=== PATIENT | female | born 1990 | race Caucasian/White ===

== ENCOUNTER 2018-08-02 21:39 | Outpatient (CLI) | payer MEDICAID ==
[~2018-08-02] VITALS: Ht 165.1 cm; Wt 106.9 kg
[2018-08-02] MEDS: LACTATED RINGER'S 1,000 ML IV SCH
[2018-08-02 22:04] VITALS: BP 129/61; PULSE 87; RESP 17; Ht 165.1 cm; Wt 106.9 kg
[2018-08-02] MEDS ORDERED: IRON1TAB78 PO (22:08)
[2018-08-02] MEDS ORDERED: ASPI-817 PO (22:08)
[2018-08-02] MEDS ORDERED: PREN1TAB13 PO (22:08)
[2018-08-02] MEDS ORDERED: TERBUTALINE 1 MG/ML INJ SC STA (22:38)
[2018-08-02] MEDS ORDERED: LACTATED RINGER'S 1,000 ML IV STA (22:38)
[2018-08-03] MEDS: LACTATED RINGER'S 1,000 ML IV SCH
--- NOTE | 2018-08-03 00:29 | PN ---
Triage Information Date/Time Aug 03, 2018 Reason for visit: labor Weeks of Gestation 31w 2d /Para 2/1 Diabetes: none Hypertention: none Additional information PMHx: none. PSHx: x 1 for PIH. NKDA. Objective Vital Signs Date Temp Pulse Resp B/P (MAP) Pulse Ox O2 O2 Flow FiO2 Time Delivery Rate 08/02/18 98.3 87 17 129/61 Room Air 22:04 (83) Heart Rate: 130's Heart Rate Comments With accels to 180 bpm. No decels. Contractions: < 5 Minutes Apart (initially) Exam closed/thick/high. Results/Medications Result Diagram: 08/02/18 2300 Results 24 hrs Laboratory Tests Test 08/02/18 21:48 08/02/18 23:00 Urine Color YELLOW Urine Clarity CLEAR Urine pH 5.0 Urine Specific [place] 1.024 Urine Ketones NEGATIVE Urine Nitrite NEGATIVE Urine Bilirubin NEGATIVE Urine Urobilinogen NEGATIVE Urine Leukocyte Esterase 1+ H Urine Microscopic RBC 1 Urine Microscopic WBC 4 Urine Squamous Epithelial Cells FEW Urine Bacteria FEW A Urine Mucus FEW A Urine Hemoglobin NEGATIVE Urine Glucose 1+ H Urine Total Protein NEGATIVE White Blood Count 9.1 Red Blood Count 3.93 L Hemoglobin 11.6 L Hematocrit 34.4 L Mean Corpuscular Volume 87.5 Mean Corpuscular Hemoglobin 29.5 Mean Corpuscular Hemoglobin Concent 33.7 Red Cell Distribution Width 12.4 Platelet Count 271 Mean Platelet Volume 10.1 Immature Granulocytes % 0.700 H Neutrophils % 66.8 Lymphocytes % 23.7 Monocytes % 7.8 Eosinophils % 0.7 Basophils % 0.3 Nucleated Red Blood Cells % 0.0 Immature Granulocytes # 0.060 H Neutrophils # 6.1 Lymphocytes # 2.2 Monocytes # 0.7 Eosinophils # 0.1 Basophils # 0.0 Nucleated Red Blood Cells # 0.0 Medications Current Medications Lactated Ringer's 1,000 ml @ 125 mls/hr Q8H IV ; Start 08/02/18 at 23:45 Imaging Results BPP 8/8 with an LUCY of 25.5 cm. VTX. Disposition: Discharge Assessment/Plan A: IUP at 31w 2d. False labor. P: Pt was given ample IV hydration and a dose of terbutaline. She may need a 2nd dose but the first one knocked out most of them. Will observe a while longer and d/c home. PTL precautions reviewed. CARLEY SUAREZ MD Aug 03, 2018 00:28
--- NOTE | 2018-08-03 01:39 | TRIAGE ---
OB Triage Datetime Report Generated by CPN: 08/03/2018 01:38 Datetime: 08/03/2018 01:06 Stage of : OB Triage Labor Evaluation Frequency: X2 Monitor Mode: External Duration (sec)2399: 40-80 Quality: Mild Pattern: Normal: <= 5 Contractions in 10 Minutes Resting Tone [place]: Relaxed Heart Rate FHR Baseline Rate: 135 Monitor Mode: External US Variability: Moderate 6-25 bpm Accelerations: 15X15 Decelerations: None Category: Category I Datetime: 08/03/2018 00:50 Stage of : OB Triage Pain Assessment Pain Scale: 0 Pain Presence: None/Denies Pain Type: N/A Pain Assessment Comments: PT REPORTED FEELING RELIEF FROM PAIN. Datetime: 08/03/2018 00:10 Labor Evaluation Frequency: X2 Monitor Mode: External Duration (sec)2399: 50-60 Quality: Mild Pattern: Normal: <= 5 Contractions in 10 Minutes Resting Tone [place]: Relaxed Heart Rate FHR Baseline Rate: 135 Monitor Mode: External US Variability: Moderate 6-25 bpm Accelerations: 15X15 Decelerations: Variable Category: Category II Comments: VARIABLE X1; DR. SUAREZ AWARE OF CAT 2 STRIP Datetime: 08/02/2018 23:05 Stage of : OB Triage Labor Evaluation Frequency: 1-3 Monitor Mode: External Duration (sec)2399: 40-80 Quality: Mild Pattern: Normal: <= 5 Contractions in 10 Minutes Resting Tone [place]: Relaxed Heart Rate FHR Baseline Rate: 145 Monitor Mode: External US Variability: Moderate 6-25 bpm Accelerations: 15X15 Decelerations: None Category: Category I Datetime: 08/02/2018 22:40 Vaginal Exam Dilatation (cms): 0.0 Effacement (%): 0 Station: -3 Exam By: Jose Alfredo CROCKETT Membrane Status: Intact Vaginal Bleeding: None Cervix, Consistency: Firm Cervix, Position: Posterior Datetime: 08/02/2018 22:30 Stage of : OB Triage Labor Evaluation Frequency: 2-3 Monitor Mode: External Duration (sec)2399: 30-60 Quality: Moderate Pattern: Normal: <= 5 Contractions in 10 Minutes Resting Tone [place]: Relaxed Heart Rate FHR Baseline Rate: 145 Monitor Mode: External US Accelerations: 15X15 Decelerations: None Category: Category I Datetime: 08/02/2018 22:16 Stage of : OB Triage Maternal Assessment Level of Consciousness: Fully Conscious DTR's/Clonus: DTRs 2+; No Clonus Headache: Denies Blurred Vision: No Respiratory Effort: Unlabored; Regular Rhythm; Equal Expansion Breath Sounds, Left: Clear and Equal Breath Sounds, Right: Clear and Equal Nausea/Vomiting: Denies RUQ Epigastric Pain: Denies Lower Extremities Edema: None Degree: None Upper Extremities Edema: None Degree: None Facial Edema: None Temperature Route: Oral Fall Risk Assessment History of Falling: (0) No Secondary Diagnosis: (0) No Ambulatory Aid: (0) Bedrest/Nurse Assist IV Therapy: (0) No Gait: (0) Normal/Bedrest/Immobile Mental Status: (0) Oriented to Own Ability Fall Score: 0 Fall Risk Score Definition: No Risk: No action required Pain Assessment Pain Scale: 4 Pain Presence: Constant Pain Type: Cramping; Dull; Contraction; Pressure Pain Location: Abdomen; Back; Perineum Pain Goal: 0 Pain Relief Measures: Comfort Measures Datetime: 08/02/2018 22:14 Time of Arrival: 08/02/2018 21:33 EGA: 31.1 Arrived By: Wheelchair Arrived From: Home Chief Complaint: CONTRACTIONS, VAGINAL PRESSURE, BACK PAIN, URINARY FREQUENCY Movement: Present Contractions: Regular Contractions: 2-4 Rupture of Membranes: Denies Vaginal Bleeding: None Vaginal Discharge: Denies Recent Sexual Intercouse: Denies Abdominal Trauma: Not Applicable Patient Complaints: Contractions; Back Pain; Urinary Frequency; Other Time Provider Notified: 08/02/2018 22:37 Provider Notified: DR. TORRE Initial Plan: EFM, CALL OB Datetime: 08/02/2018 21:46 Monitor Mode: External Contraction Comments: APPLIED Monitor Mode: External US Comments: APPLIED
== END 2018-08-03 01:15 | disposition home or self-care (01) ==
LOC: OBT 21:39 → L-D 21:40 → OBT 08-03 01:15
PROVIDERS: ATTEND Obstetrics & Gynecology
DX: O60.03 Preterm labor without delivery, third trimester (principal); Z3A.31 31 weeks gestation of pregnancy
CPT/HCPCS: 36415; 76817; 76818; 81001; 85025; 87086; 96360; 96361; 96372; J3105; J7120; Z7500; G0463

== ENCOUNTER 2018-08-23 23:13 | Outpatient (CLI) | payer MEDICAID ==
[~2018-08-23] VITALS: Ht 165.1 cm; Wt 106.4 kg
[~2018-08-23 23:13] MED LIST: ASPI-817 PO; IRON1TAB78 PO; PREN1TAB13 PO
[2018-08-24 00:42] VITALS: Ht 165.1 cm; Wt 106.4 kg
[2018-08-24] MEDS ORDERED: TERBUTALINE 1 MG/ML INJ SC ONE (04:00)
--- NOTE | 2018-08-24 06:20 | PN ---
Triage Information Date/Time Reason for visit: Abdominal pain and urinary frequency Weeks of Gestation 34 weeks and 2 days /Para 2 para 1001 Diabetes: none Hypertention: none Results/Medications Result Diagram: 08/24/18 0308 Results 24 hrs Laboratory Tests Test 08/24/18 02:00 08/24/18 03:08 Urine Color YELLOW Urine Clarity SLIGHTLY CLOUDY A Urine pH 5.0 Urine Specific [place] 1.019 Urine Ketones 2+ H Urine Nitrite NEGATIVE Urine Bilirubin NEGATIVE Urine Urobilinogen 1+ H Urine Leukocyte Esterase NEGATIVE Urine Microscopic RBC 2 Urine Microscopic WBC 5 Urine Squamous Epithelial Cells FEW Urine Bacteria FEW A Urine Mucus MODERATE Urine Hemoglobin NEGATIVE Urine Glucose NEGATIVE Urine Total Protein NEGATIVE White Blood Count 10.0 Red Blood Count 3.83 L Hemoglobin 11.0 L Hematocrit 33.2 L Mean Corpuscular Volume 86.7 Mean Corpuscular Hemoglobin 28.7 L Mean Corpuscular Hemoglobin Concent 33.1 Red Cell Distribution Width 12.6 Platelet Count 281 Mean Platelet Volume 10.3 Immature Granulocytes % 1.100 H Neutrophils % 67.8 Lymphocytes % 22.6 Monocytes % 7.7 Eosinophils % 0.6 Basophils % 0.2 Nucleated Red Blood Cells % 0.0 Immature Granulocytes # 0.110 H Neutrophils # 6.8 Lymphocytes # 2.3 Monocytes # 0.8 Eosinophils # 0.1 Basophils # 0.0 Nucleated Red Blood Cells # 0.0 Imaging Results There is a single live intrauterine gestation. Cardiac activity is present with 132 beats per minute. Cephalic presentation. Measurements were made in order to determine age. The results are as follows: BPD = 8.04 cm 32 weeks 2 days HC = 31.71 cm 35 weeks 5 days AC = 32.26 cm 36 weeks 1 day FL = 6.67 cm 34 weeks 2 days Estimated gestational age of approximately 34 weeks 4 days. The estimated date of delivery is 10/01/2018. The EFW = 2622 grams. No anatomic abnormalities demonstrated. The placenta is right posterior. There is no evidence for an abruption or placenta previa. IMPRESSION: Single live intrauterine gestation of approximately 34 weeks 4 days. Estimated date of delivery 10/01/2018. Disposition: Discharge Assessment/Plan 28 years old 2 para 1001 with single intrauterine at 34 weeks and 2 days with a LEIF of 10/03/2018 complaining of abdominal pain and urinary frequency. She states good movement. She denies nausea, vomiting, shortness of breath, chest pain, headache, visual changes, vaginal bleeding or LOF. -FHR: No sign of metabolic acidosis- Category I -CBC within normal limits, urinalysis within normal limits. Urine culture ordered -She irregular uterine contraction IV fluid and 1 dose of terbutaline given, no further uterine contractions noted -Ultrasound performed, amniotic fluid with 16.6, biophysical profile 8 out of 8 rest of ultrasound as noted above -Symptoms and sign of labor, preeclampsia, kick count discussed with patient, she voiced understanding. All of her questions answered. -Patient was discharged home in stable condition with the appropriate discharge instructions provided. I would like patient to have close follow-up with her primary physician or outpatient clinic in 1-2 days or return to triage for worsening symptoms or any other urgent concerns. SHAR OLIVARES Aug 24, 2018 06:20
--- NOTE | 2018-08-24 09:17 | TRIAGE ---
OB Triage Datetime Report Generated by CPN: 08/24/2018 09:17 Datetime: 08/24/2018 05:40 Stage of : OB Triage Labor Evaluation Frequency: X1/42 MIN Monitor Mode: External Duration (sec)2399: 60 Quality: Mild Pattern: Normal: <= 5 Contractions in 10 Minutes Resting Tone [place]: Relaxed Heart Rate FHR Baseline Rate: 125 Monitor Mode: External US Variability: Moderate 6-25 bpm Accelerations: 15X15 Decelerations: None Category: Category I Datetime: 08/24/2018 05:00 Stage of : OB Triage Labor Evaluation Frequency: 0 Monitor Mode: External Pattern: Normal: <= 5 Contractions in 10 Minutes Resting Tone [place]: Relaxed Heart Rate FHR Baseline Rate: 125 Monitor Mode: External US Variability: Moderate 6-25 bpm Accelerations: 15X15 Decelerations: None Category: Category I Datetime: 08/24/2018 04:00 Stage of : OB Triage Labor Evaluation Frequency: 4-9 Monitor Mode: External Duration (sec)2399: 50-80 Quality: Mild Pattern: Normal: <= 5 Contractions in 10 Minutes Resting Tone [place]: Relaxed Heart Rate FHR Baseline Rate: 130 Monitor Mode: External US Variability: Moderate 6-25 bpm Accelerations: 15X15 Decelerations: None Category: Category I Datetime: 08/24/2018 03:00 Stage of : OB Triage Labor Evaluation Frequency: X1/HR Monitor Mode: External Duration (sec)2399: 70 Quality: Mild Pattern: Normal: <= 5 Contractions in 10 Minutes Resting Tone [place]: Relaxed Heart Rate FHR Baseline Rate: 130 Monitor Mode: External US Variability: Moderate 6-25 bpm Accelerations: 15X15 Decelerations: Variable Category: Category II Pain Assessment Pain Scale: 4 Pain Presence: Intermittent Pain Type: Cramping Pain Location: Abdomen Pain Goal: 3 Pain Relief Measures: Comfort Measures Datetime: 08/24/2018 02:59 Vaginal Exam Dilatation (cms): 1.0 Effacement (%): 50 Station: -2 Exam By: MIGEL Vaginal Bleeding: None Cervix, Consistency: Moderate Cervix, Position: Posterior Datetime: 08/24/2018 02:34 Time of Arrival: 08/23/2018 23:10 EGA: 34.1 Arrived By: Wheelchair Arrived From: Home Chief Complaint: LOWER ABD PAIN Movement: Present Contractions: Irregular Rupture of Membranes: Denies Vaginal Discharge: Denies Recent Sexual Intercouse: Denies Time Provider Notified: 08/24/2018 00:50 Provider Notified: HADADIAN Initial Plan: CBC, UU, SVE, EFW AND BPP Datetime: 08/24/2018 01:41 Labor Evaluation Frequency: 0 Monitor Mode: External Heart Rate FHR Baseline Rate: 130 Monitor Mode: External US Comments: loss contact, audible at 130s Datetime: 08/24/2018 01:00 Labor Evaluation Frequency: 0 Monitor Mode: External Resting Tone [place]: Relaxed Heart Rate FHR Baseline Rate: 130 Monitor Mode: External US Variability: Moderate 6-25 bpm Accelerations: 15X15 Decelerations: None Category: Category I Datetime: 08/24/2018 00:50 Assessment Type: Triage Maternal Assessment Level of Consciousness: Fully Conscious DTR's/Clonus: DTRs 2+; No Clonus Headache: Denies Blurred Vision: No Respiratory Effort: Unlabored; Regular Rhythm; Equal Expansion Breath Sounds, Left: Clear and Equal Breath Sounds, Right: Clear and Equal Nausea/Vomiting: Denies RUQ Epigastric Pain: Denies Facial Edema: None Fall Risk Assessment History of Falling: (0) No Secondary Diagnosis: (0) No Ambulatory Aid: (0) Bedrest/Nurse Assist IV Therapy: (0) No Gait: (0) Normal/Bedrest/Immobile Mental Status: (0) Oriented to Own Ability Fall Score: 0 Fall Risk Score Definition: No Risk: No action required Datetime: 08/24/2018 00:35 Monitor Mode: External Monitor Mode: External US Comments: applied Datetime: 08/03/2018 01:15 Time of Arrival: 08/24/2018 00:50 EGA: 34.2 Arrived By: Wheelchair Arrived From: Home Chief Complaint: Lower Abdominal Pain Movement: Present Contractions: Irregular Rupture of Membranes: Denies Vaginal Bleeding: None Vaginal Discharge: Denies Recent Sexual Intercouse: Denies Abdominal Trauma: Not Applicable Patient Complaints: Other Time Provider Notified: 08/24/2018 00:50 Provider Notified: Hadadian Initial Plan: EFW, BPP, UA, CBC, SVE Datetime: 08/02/2018 22:16 Fall Score: 0 Fall Risk Score Definition: No Risk: No action required Datetime: 08/02/2018 22:14 EGA: 31.1
== END 2018-08-24 06:12 | disposition home or self-care (01) ==
LOC: L-D 23:13 → OBT 23:13 → L-D 08-24 00:35 → OBT 08-24 06:12
PROVIDERS: ATTEND Obstetrics & Gynecology
DX: O26.893 Other specified pregnancy related conditions, third trimester (principal); Z3A.34 34 weeks gestation of pregnancy; R10.9 Unspecified abdominal pain; R35.0 Frequency of micturition
CPT/HCPCS: 76815; 76818; 81001; 85025; 87086; 96372; J3105; Z7500; 81003; G0463

== ENCOUNTER 2018-09-18 08:56 | Inpatient (IN) | payer MEDICAID ==
[~2018-09-18] VITALS: Ht 165.1 cm; Wt 110.0 kg
[~2018-09-18 08:56] MED LIST changes: +EPHEDrine SULFATE 50 MG/5 ML SYG ONE; +OXYTOCIN 30 UNITS/LR 500 ML BAG IV ONE
[2018-09-18 09:16] VITALS: BP 113/72; PULSE 92; RESP 18; Ht 165.1 cm; Wt 110.0 kg
[2018-09-18] MEDS ORDERED: LACTATED RINGER'S 1,000 ML IV SCH ×2 (10:00→19:31)
[2018-09-18] MEDS ORDERED: CEFTRIAXONE 1 GM/50 ML (PMX) 50 ML IVPB ONE (10:30)
--- NOTE | 2018-09-18 11:37 | TRIAGE ---
OB Triage Datetime Report Generated by CPN: 09/18/2018 11:37 Datetime: 09/18/2018 11:07 Maternal Assessment Level of Consciousness: Fully Conscious DTR's/Clonus: DTRs 2+ Headache: Denies Blurred Vision: No Nausea/Vomiting: Denies RUQ Epigastric Pain: Denies Facial Edema: None Labor Evaluation Frequency: 3 Monitor Mode: External Duration (sec)2399: 60 Quality: Moderate Pattern: Normal: <= 5 Contractions in 10 Minutes Resting Tone [place]: Relaxed Heart Rate FHR Baseline Rate: 130 Monitor Mode: External US FHR Baseline Changes: No Baseline Change Variability: Moderate 6-25 bpm Accelerations: 15X15 Decelerations: None Category: Category I Pain Assessment Pain Scale: 4 Pain Presence: Intermittent Pain Type: Contraction Pain Location: Abdomen Pain Goal: 2 Membrane Status: Intact Datetime: 09/18/2018 11:04 EGA: 38.4 Datetime: 09/18/2018 09:21 Maternal Assessment Level of Consciousness: Fully Conscious DTR's/Clonus: DTRs 2+; No Clonus Headache: Denies Blurred Vision: No Respiratory Effort: Unlabored; Regular Rhythm; Equal Expansion Breath Sounds, Left: Clear and Equal Breath Sounds, Right: Clear and Equal Nausea/Vomiting: Denies RUQ Epigastric Pain: Denies Facial Edema: None Temperature Route: Axillary Fall Risk Assessment History of Falling: (0) No Secondary Diagnosis: (0) No Ambulatory Aid: (0) Bedrest/Nurse Assist IV Therapy: (0) No Gait: (0) Normal/Bedrest/Immobile Mental Status: (0) Oriented to Own Ability Fall Score: 0 Fall Risk Score Definition: No Risk: No action required Datetime: 09/18/2018 09:05 Maternal Assessment Level of Consciousness: Fully Conscious DTR's/Clonus: DTRs 2+ Headache: Denies Blurred Vision: No Nausea/Vomiting: Denies RUQ Epigastric Pain: Denies Facial Edema: None Labor Evaluation Frequency: Q 20 AT HOME Monitor Mode: External Quality: Moderate Pattern: Normal: <= 5 Contractions in 10 Minutes Resting Tone [place]: Relaxed Heart Rate FHR Baseline Rate: 145 Monitor Mode: External US FHR Baseline Changes: No Baseline Change Variability: Moderate 6-25 bpm Accelerations: 15X15 Decelerations: None Category: Category I Pain Assessment Pain Scale: 4 Pain Presence: Intermittent Pain Type: Cramping Pain Location: Abdomen Vaginal Exam Dilatation (cms): 1.0 Station: -3 Exam By: EDVIN KRISHNAMURTHY Membrane Status: Intact Vaginal Bleeding: None Cervix, Consistency: Moderate Cervix, Position: Posterior Datetime: 09/18/2018 09:02 Time of Arrival: 09/18/2018 08:55 EGA: 37.6 Arrived By: Ambulatory Arrived From: Home Chief Complaint: UCS SINCE 0400 Movement: Present Time Contractions Began: 09/18/2018 04:00 Rupture of Membranes: Denies Vaginal Bleeding: None Vaginal Discharge: Denies Recent Sexual Intercouse: Denies Abdominal Trauma: Not Applicable Patient Complaints: Contractions Time Provider Notified: 09/18/2018 09:50 (Annotations: Data stored by CPN on behalf of user) Provider Notified: DR TORRE Initial Plan: EFM,CALL DR TORRE Datetime: 08/24/2018 02:34 EGA: 34.1 Datetime: 08/24/2018 00:50 Fall Score: 0 Fall Risk Score Definition: No Risk: No action required Datetime: 08/03/2018 01:15 EGA: 34.2 Datetime: 08/02/2018 22:16 Fall Score: 0 Fall Risk Score Definition: No Risk: No action required Datetime: 08/02/2018 22:14 EGA: 31.1
[2018-09-18] MEDS ORDERED: OXYTOCIN 30 UNITS/LR 500 ML IV PRN ×2 (12:00→20:00)
[2018-09-18] MEDS ORDERED: METHYLERGONOVINE 0.2 MG INJ IM PRN ×2 (12:00→20:00)
[2018-09-18] MEDS ORDERED: CARBOPROST 250 MCG INJ IM PRN ×2 (12:00→20:00)
[2018-09-18] MEDS ORDERED: CEFAZOLIN 2 GM/50 ML (PMX) 50 ML IVPB SCH (12:00)
[2018-09-18] MEDS ORDERED: MISOPROSTOL 200 MCG TAB PR PRN ×2 (12:00→20:00)
--- NOTE | 2018-09-18 13:01 | PREAC ---
Date/Time of Note Date/Time of Note DATE: 09/18/18 TIME: 12:59 Anesthesia Eval and Record Evaluation Time Pre-Procedure Interview DATE: 09/18/18 TIME: 12:59 Age 28 Sex female NPO: 8 hrs Preoperative diagnosis Repeat in labor and BTL Planned procedure and BTL Past Medical History Past Medical History: Includes Cardio: HTN Heme: Anemia : : (2), Para: (1), Gestational age: (38) Surgery & Anesthesia Issues No known issue Meds Anticoagulation: No Beta Samuel within 24 hr: No Reason Beta Samuel not given: Pt. not on B-Samuel Reported Medications Iron,Carbonyl/Vit C/Vit B12/Fa (IRON 100 PLUS TABLET) 1 Each Tablet, 1 EACH PO, TAB 08/02/18 Aspirin* (Aspirin* EC) 81 Mg Tablet.dr, 81 MG PO DAILY, TAB 08/02/18 Pnv95/Ferrous Fumarate/FA ( Vitamins Tablet) 1 Each Tablet, 1 EACH PO, TAB 08/02/18 Current Medications Lactated Ringer's 1,000 ml @ 120 mls/hr Q8H20M IV Last administered on 09/18/18at 09:59; Admin Dose 120 MLS/HR; Start 09/18/18 at 10:00 Cefazolin Sodium/ Dextrose 50 ml @ 100 mls/hr ONCE IVPB ; Start 09/18/18 at 12:00 Oxytocin/Lactated Ringer's 500 ml @ 0 mls/hr ONCE PRN IV .VAGINAL BLEEDING; Start 09/18/18 at 12:00 Methylergonovine Maleate (Methergine) 0.2 mg ONCE PRN IM .VAGINAL BLEEDING; Start 09/18/18 at 12:00 Carboprost Tromethamine (Hemabate) 250 mcg ONCE PRN IM .VAGINAL BLEEDING; Start 09/18/18 at 12:00 Misoprostol (Cytotec) 1,000 mcg ONCE PRN MS .VAGINAL BLEEDING; Start 09/18/18 at 12:00 Meds reviewed: Yes Allergies Coded Allergies: No Known Allergy (Unverified , 08/02/18) Allergies Reviewed: Yes Labs/Studies Labs Reviewed: Reviewed by anesthesiologist Result Diagram: 09/18/18 1210 Laboratory Tests 09/18/18 12:10 test: Positive Studies: ECG (n/a), CXR (n/a) Pre-procedure Exam Last vitals Vital Signs Date Temp Pulse Resp B/P (MAP) Pulse Ox O2 O2 Flow FiO2 Time Delivery Rate 09/18/18 98.3 92 18 113/72 Room Air 09:16 (86) Airway: Adequate mouth opening, Adequate thyromental dist Mallampati: Mallampati II Teeth: Normal Lung: Normal Heart: Normal ASA Physical Status ASA physical status: 2 Emergency: E Planned Anesthetic Neuraxial: Spinal Planned Pain Management Sub-arachniod narcotics, Parenteral pain med Pre-operative Attestations Prior to commencing anesthesia and surgery, the patient was re-evaluated, there was verification of: *The patient's identity *The results of appropriate recent lab work and preoperative vital signs *The above evaluation not changing prior to induction *Anesthetic plan, risk benefits, alternative and complications discussed with patient/family; questions answered; patient/family understands, accepts and wishes to proceed. POLO STARR MD Sep 18, 2018 13:01
[2018-09-18] MEDS ORDERED: ONDANSETRON 4 MG INJ IV ONE (13:30)
[2018-09-18] MEDS ORDERED: CITRIC ACID/NA CITRATE 30 ML CUP PO ONE (13:30)
--- NOTE | 2018-09-18 14:03 | HP ---
Date/Time of Note Date/Time of Note DATE: 09/18/18 TIME: 13:56 OB - History Hx of Present Free Text/Dictation 28-year-old female 2 para 1 at 37 weeks and 6 days gestation admitted complaining of onset of a uterine contractions in early a.m. Denies rupture of membrane no vaginal bleed Last Menstrual Period: Dec 27, 2017 Estimated Due Date: Oct 03, 2018 : 2 Para: 1 Care: Good Care Ultrasounds: Normal mid trimester US Obstetrical Complications: None Medical Complications: None Past Family/Social History * Past Medical, Surgical, Family and Obstetric Histories reviewed from chart. Blood Type: O+ Rubella: immune RPR/VDRL: Negative GBS Status: Negative HBsAG: Negative OB Admission Exam Vital Signs Vital Signs Vital Signs Date Temp Pulse Resp B/P (MAP) Pulse Ox O2 O2 Flow FiO2 Time Delivery Rate 09/18/18 98.3 92 18 113/72 Room Air 09:16 (86) Physical Exam HEENT: WNL Heart: Rhythm Normal Lungs: Clear, Equal Abdomen: WNL Extremities: Normal Reflexes: Normal Cervical Dilatation: 2cm Effacement: 50% Station: -3 Membranes: Intact Heart Rate: 140's Accelerations: Accelerations Present Decelerations: No Decelerations Varibility: Marked Contractions on Admission: < 5 Minutes Apart Date/Time Contractions Began: 414 056 AM Frequency of Contractions: Every 2-3-minute Intensity: Moderate Last 72 hours Lab Results CBC & BMP 09/18/18 12:10 OB Assessment/Plan Reason for admission: section Other Assessment: Term gestation Previous section Patient has a strong desire to have permanent sterilization Other plan: Repeat and tubal ligation AWA DERAS MD Sep 18, 2018 14:03
[2018-09-18] MEDS ORDERED: OXYTOCIN 10 UNIT INJ ONE (14:12)
[2018-09-18] MEDS ORDERED: morphine SULFATE/PF (10 MG/10 ML) INJ ONE (14:12)
[2018-09-18] MEDS ORDERED: DEXAMETHASONE 4 MG/ML 1 ML INJ ONE (14:38)
[2018-09-18] MEDS ORDERED: KETOROLAC 30 MG INJ ONE (14:38)
[2018-09-18] MEDS ORDERED: METOCLOPRAMIDE 10 MG INJ ONE (14:38)
[2018-09-18] MEDS ORDERED: NALOXONE (0.4 MG/ML) INJ IV PRN (15:00)
[2018-09-18] MEDS ORDERED: morphine 2 MG INJ IV PRN ×2 (15:00)
[2018-09-18] MEDS ORDERED: KETOROLAC 30 MG INJ IV PRN (15:00)
[2018-09-18] MEDS ORDERED: ONDANSETRON 4 MG INJ IV PRN (15:00)
[2018-09-18] MEDS ORDERED: HYDROCODONE/APAP (5/325) TAB PO PRN ×2 (15:00→20:00)
[2018-09-18] MEDS ORDERED: DIPHENHYDRAMINE 50 MG INJ IV PRN (15:00)
[2018-09-18] MEDS ORDERED: NALBUPHINE HCL (10 MG/1 ML) INJ IV PRN (15:00)
[2018-09-18] MEDS ORDERED: HYDROmorphONE 0.5 MG/0.5 ML SYG IV PRN ×2 (15:00)
[2018-09-18] MEDS ORDERED: ACETAMINOPHEN 500 MG TAB PO PRN (15:00)
[2018-09-18] MEDS ORDERED: KETOROLAC 30 MG INJ IV STA (15:18)
--- NOTE | 2018-09-18 15:18 | OPR ---
Operative Report Planned Procedure Free Text/Dictation 28-year-old female 2 para 1 at 37 weeks and 6 days for repeat section and tubal ligation labor Procedure date Sep 18, 2018 Procedure(s) Repeat section and bilateral tubal ligation Performed by see signature line Senior Technical Specialist: TRISTAN NARAYAN M.D. Anesthesiologist: POLO STARR MD Pre-procedure diagnosis 37 weeks and 6 days gestation Previous section x1 Desired sterilization [id number] Anesthesia Type: [id number] spinal Post-Procedure Post-procedure diagnosis Status post repeat and tubal ligation Findings Live Baby in OT position Clear amniotic fluid Normal-appearing right and left fallopian tubes and ovaries Estimated Blood Loss: 500 - 600 mls Specimen(s) Segments of right and left fallopian tubes Grafts/Implant(s) none Complication(s) none Pt Condition post procedure: stable Disposition: PACU Procedure Description Under satisfactory anaesthesia a Pfannenstiel incision was made two fingerbreadth above and parallel to the symphysis of pubis around the previous scar and previous scar was removed Incision was extended laterally to the border of the Recti muscles on either sides. Incision was carried down with sharp and blunt dissection until fascia was reached. Anterior Recti muscle fascia was incised in mid portion and incision extended laterally to the border of skin incision. Fascia was mobilized from muscle superiorly and Recti muscles were from midline using sharp and blunt dissection. Peritoneum was visualized; Avoiding bowel and bladder it was incised . Incision was extended superiorly and inferiorly. Bladder blade was placed. Posterior peritoneum covering the lower segment of the uterus and lower segment of the uterus were incised.Low transverse uterine incision was made on lower segment of the uterus. Incision extended laterally to the border of Round Lig. on either sides and baby was delivered from OT. position . Amniotic fluid appeared clear. Cord blood was obtained and cord had 3 vessels . Placenta was delivered spontaneously and appeared intact and complete. Intrauterine cavity was rubbed with a laparotomy sponge. Uterine incision was closed in 2 layers using running stitches of No1 Monocryl. Hemostasis appeared secure. Ovaries and Fallopian tubes were within normal limits. Bilateral Tubal Ligation was performed by following procedure: R fallopian tube was raised in mid portion; a Korin clamp was placed below the fimbriae extending to proximal portion of the fallopian tube. Another clamp was placed parallel to the first and after incising the fallopian tube the stump was sutured using 0 Vicryl stitch. Hemostasis was secure . Same procedure was done on fallopian tube on the opposite side. Hemostasis appeared to be secure on ligated sites of either fallopian tubes. Announcing needle, lap sponge and instrument count to be correct abdomen was closed in layers as follows: Peritoneum and Recti muscles with running stitches of 2-0 Vicryl. Fascia with running stitch of No 1 PDS. Subcutaneous tissue with running stitches of 2-0 Vicryl and skin was closed using luis enrique. Patient tolerated the procedure well and was transferred to [facility] in good condition. AWA DERAS MD Sep 18, 2018 15:18
--- NOTE | 2018-09-18 15:27 | PAC ---
Date/Time of Note Date/Time of Note DATE: 09/18/18 TIME: 15:27 Post-Anesthesia Notes Post-Anesthesia Note Last documented vital signs Vital Signs Date Temp Pulse Resp B/P (MAP) Pulse Ox O2 O2 Flow FiO2 Time Delivery Rate 09/18/18 98.5 92 18 113/72 Room Air 15:26 (86) Activity: WNL Respiratory function: WNL Cardiovascular function: WNL Mental status: Baseline Pain reasonably controlled: Yes Hydration appropriate: Yes Nausea/Vomiting absent: Yes POLO STARR MD Sep 18, 2018 15:27
[2018-09-18] MEDS ORDERED: AZITHROMYCIN 500MG/NS (PMX) 250 ML IVPB ONE (15:30)
[2018-09-18 18:15] VITALS: BP 116/67; PULSE 74; RESP 18
[2018-09-18 19:30] VITALS: BP 121/71; PULSE 74; RESP 18
[2018-09-18] MEDS ORDERED: OXYCODONE/ACETAMINOPHEN (5/325) TAB PO PRN (20:00)
[2018-09-18] MEDS ORDERED: LANOLIN HPA 1 PKT TOP PRN (20:00)
[2018-09-18] MEDS ORDERED: NA PHOSPHATE/BIPHOS 133 ML ENEMA PR PRN (20:00)
[2018-09-18] MEDS: SENNA/DOCUSATE NA (8.6MG/50MG) TAB PO SCH (21:39)
[2018-09-18] MEDS: CEFAZOLIN 2 GM/50 ML (PMX) 50 ML IVPB SCH (21:40)
[2018-09-18] MEDS: CLINDAMYCIN 300 MG CAP PO SCH (23:55)
[2018-09-19] VITALS: BP 119/69; PULSE 71; RESP 19
[2018-09-19 04:00] VITALS: BP 108/65; PULSE 97; RESP 18
[2018-09-19] MEDS: CEFAZOLIN 2 GM/50 ML (PMX) 50 ML IVPB SCH ×2 (05:50→13:23)
[2018-09-19] MEDS: CLINDAMYCIN 300 MG CAP PO SCH ×3 (05:50→17:56)
[2018-09-19] MEDS: LACTATED RINGER'S 1,000 ML IV SCH ×2 (05:50→13:30)
[2018-09-19 08:20] VITALS: BP 108/61; PULSE 95; RESP 17
[2018-09-19] MEDS ORDERED: BISACODYL 10 MG SUPP PR ONE (10:30)
[2018-09-19] MEDS: SENNA/DOCUSATE NA (8.6MG/50MG) TAB PO SCH ×2 (10:46→21:36)
[2018-09-19 15:30] VITALS: BP 116/58; PULSE 90; RESP 18
--- NOTE | 2018-09-19 17:07 | PN ---
Date/Time of Note Date/Time of Note DATE: 09/19/18 TIME: 17:07 Assessment/Plan VTE Prophylaxis VTE Prophylaxis Intervention: ambulation Lines/Catheters IV Catheter Type (from Nrsg): Peripheral IV Assessment/Plan Assessment/Plan Postop day #1 status post Continue to ambulate patient on advance diet Subjective 24 Hr Interval Summary Passing flatus but no bowel movement Constitutional: no complaints, improved, ambulates, BM, flatus, urine output Pain Control: well controlled Exam/Review of Systems Vital Signs Vitals Vital Signs Date Temp Pulse Resp B/P (MAP) Pulse Ox O2 O2 Flow FiO2 Time Delivery Rate 09/19/18 99.0 90 18 116/58 15:30 (77) 09/19/18 95 Room Air 08:20 Intake and Output 09/18/18 09/18/18 09/19/18 1515:00 23:00 07:00 IntakeIntake Total 1000 ml 800 ml 1390 ml OutputOutput Total 400 ml 997 ml 500 ml BalanceBalance 600 ml -197 ml 890 ml Exam Free Text/Dictation Abdomen is soft slightly tender around incision and abdomen does not seem distended with present bowel sounds Incision is covered Constitutional: alert, oriented, well developed Psych: no complaints, nl mood/affect Head: normocephalic, atraumatic Eyes: nl conjunctiva, EOMI, nl lids, nl sclera ENMT: nl external ears & nose, nl lips & teeth, nl nasal mucosa & septum, mucosa pink and moist Neck: supple, non-tender Respiratory: clear to auscultation, normal air movement Cardiovascular: regular rate and rhythm, nl pulses Gastrointestinal: soft, nl liver, spleen, non-tender Musculoskeletal: nl extremities to inspection, nl gait and stance Extremities: normal pulses Neurological: METAL DIE FINISHER II-XII intact, nl mental status, nl speech, nl strength Skin: nl turgor, rash or lesions Lymph: nl lymph nodes Results Result Diagram: 09/19/18 [id number] AWA DERAS MD Sep 19, 2018 17:07
[2018-09-19 20:00] VITALS: BP 127/69; PULSE 95; RESP 18
[2018-09-19] MEDS: IBUPROFEN 800 MG TAB PO SCH (21:36)
[2018-09-20] MEDS: CLINDAMYCIN 300 MG CAP PO SCH ×5 (00:10→23:21)
[2018-09-20 03:38] VITALS: BP 115/56; PULSE 89; RESP 17
[2018-09-20] MEDS: IBUPROFEN 800 MG TAB PO SCH ×3 (05:42→21:31)
[2018-09-20 08:00] VITALS: BP 115/74; PULSE 69; RESP 18
[2018-09-20] MEDS: SENNA/DOCUSATE NA (8.6MG/50MG) TAB PO SCH ×2 (09:00→21:31)
[2018-09-20 16:00] VITALS: BP 130/76; PULSE 95; RESP 18
--- NOTE | 2018-09-20 17:25 | DS ---
Date/Time of Note Date/Time of Note DATE: 09/20/18 TIME: 17:23 Discharge Summary Admission/Discharge Info Admit Date/Time Sep 18, 2018 at 11:35 Discharge Date/Time September 20 repeat 2018 Discharge Diagnosis Status post repeat and bilateral tubal ligation Patient Condition: Serious Procedures Repeat and bilateral tubal ligation Hx of Present Illness 28-year-old female underwent repeat and bilateral tubal ligation Hospital Course Patient had uncomplicated hospital course. She tolerated diet well was ambulating without complications. Discharge home on the second or third hospitalization day with good prognosis and condition. Home Meds Reported Medications Iron,Carbonyl/Vit C/Vit B12/Fa (IRON 100 PLUS TABLET) 1 Each Tablet, 1 EACH PO, TAB 08/02/18 Aspirin* (Aspirin* EC) 81 Mg Tablet.dr, 81 MG PO DAILY, TAB 08/02/18 Pnv95/Ferrous Fumarate/FA ( Vitamins Tablet) 1 Each Tablet, 1 EACH PO, TAB 08/02/18 Follow-up Plan 4 days in clinic for staple removal Primary Care Provider Care Physician No Primary Time spent on discharge: > 30 minutes Pending Labs Laboratory Tests Test 09/20/18 06:34 Lab Scanned Report REFERENCE LAB [id number] AWA DERAS MD Sep 20, 2018 17:25
--- NOTE | 2018-09-20 17:27 | DS ---
Date/Time of Note Date/Time of Note Home today or next day DATE: 09/20/18 TIME: 17:26 Obstetrical Discharge Record Final Diagnosis Final Diagnosis: Term delivered Other Final Diagnosis Status post repeat Vaginal Delivery Obstetrical Delivery: Bilateral Tubal Ligation Section Section: Repeat Condition on Discharge Physical Assessment Last Vitals: See nurse's notes Voiding: Yes Bowel Movement: Yes Breast: Soft, non-tender, Filling Fundus: Firm Abdomen and Incision: Abdomen is soft with present bowel sounds Calf Tenderness: No Patient Condition: Good AWA DERAS MD Sep 20, 2018 17:27
--- NOTE | 2018-09-20 17:28 | PD.PPDC ---
SOLAR MAINTENANCE TECHNICIAN Discharge Instruction Provider Information Physician Information 28-year-old female had repeat and tubal ligation Diagnosis [id number] Final Diagnosis: Szbhl9y Status post repeat tubal ligation Condition Ohypa1Xc Patient Condition: Pykzv0m Good Diet Nbkni2Jw Diet: Soeqh5c Resume Regular Diet Activity/Restrictions Gmckr3Lk Activity: Udpgj5i May Shower Vpfbs3Sc Restrictions: Tsljs1m No Exercising No Lifting Nothing in the Vagina Hhfbc1Iz Return to Work or School: Rsfcf5i Nov 21, 2018 Wound/Drain Care Instructions [id number] Wound/Drain Care Instructions: Brvbs5m Keep clean and dry Follow-up Follow-up with Physician: 4, Day/Days (In clinic for staple removal) Return to clinic for Vvtyl2Xh VISUAL LEAD Instructions: Hijln7c Fever greater than 101 Chills Onlbd1Ed OB Instructions: Vagmt1v Breast Tenderness Depression Comment: Pelvic rest and no hard activity for 2 months Ibxzk1Yv Surgical Instructions: Likkw0g Incisional Drainage Incisional Redness AWA DERAS MD Sep 20, 2018 17:28
[2018-09-20] MEDS ORDERED: IBUP800T48 PO (17:29)
[2018-09-20] MEDS ORDERED: ACET325T33 PO (17:29)
[2018-09-20] MEDS ORDERED: ACETAMINOPHEN 325 MG TAB PO PRN (17:30)
[2018-09-20 20:00] VITALS: BP 131/70; PULSE 92; RESP 20
[2018-09-21 03:15] VITALS: BP 116/63; PULSE 81; RESP 18
[2018-09-21] MEDS: IBUPROFEN 800 MG TAB PO SCH ×2 (05:44→14:19)
[2018-09-21] MEDS: CLINDAMYCIN 300 MG CAP PO SCH ×2 (05:44→12:32)
[2018-09-21 08:15] VITALS: BP 113/69; PULSE 80; RESP 20
[2018-09-21] MEDS ORDERED: MEASLES,MUMPS,RUBELLA VACCINE INJ SC* ONE (09:00)
[2018-09-21] MEDS ORDERED: DIPHTH/TET/ACEL PERTUSS (ADULT) 0.5 ML VIAL IM* ONE (09:00)
[2018-09-21] MEDS: SENNA/DOCUSATE NA (8.6MG/50MG) TAB PO SCH (09:01)
--- NOTE | 2018-09-22 16:26 | DELSUM ---
Delivery Summary A-C Datetime Report Generated by CPN: 09/22/2018 16:26 DELIVERY PERSONNEL Clothes Presser: White, [place] MATERNAL INFORMATION Delivery Anesthesia: Spinal Medications in Delivery: see anesthesia records Delivery QBL (ml): 600 Placenta Cultured: No Maternal Complications: None LABOR SUMMARY EDC: 10/03/2018 00:00 No. Babies in Womb: 1 Attempted: No Labor Anesthesia: Intrathecal LABOR INFORMATION Reason for Induction: Not Applicable Onset of Labor: 09/18/2018 04:00 Oxytocin: N/A Group B Beta Strep: Negative Antibiotics # of Doses: 2 Antibiotics Time of Last Dose: 09/18/2018 14:05 Steroids Given: None Reason Steroids Not Administered: Not Applicable MEMBRANES Membranes Rupture Method: Artificial Rupture of Membranes: 09/18/2018 14:36 Length of Rupture (hr): 0.02 Amniotic Fluid Color: Clear Amniotic Fluid Amount: Small Amniotic Fluid Odor: Normal STAGES OF LABOR Stage 3 hr: 0 Stage 3 min: 1 Total Time in Labor hr: 10 Total Time in Labor min: 38 CSECTION DELIVERY Primary Indication: Other Other Primary Indication: prev. c/s in labor CSection Urgency: Non Elective CSection Incidence: Repeat Labor: Labor Elective: Nonelective CSection Incision: Lower Uterine Transverse Sterilization Procedure: Mona BABY A INFORMATION Delivery Date/Time: 09/18/2018 14:37 Method of Delivery: Born in Route : No : N/A Forceps: N/A Vacuum Extraction: N/A Shoulder Dystocia : No SHOULDER DYSTOCIA BABY A Infant Delivery Date/Time: 09/18/2018 14:37 PRESENTATION/POSITION BABY A Presentation: Cephalic Cephalic Presentation: Vertex Vertex Position: Left Occipital Anterior Breech Presentation: N/A PLACENTA INFORMATION BABY A Placenta Delivery Time : 09/18/2018 14:38 Placenta Method of Delivery: Manual Removal Placenta Status: Delivered SCORES BABY A Heart Rate 1 min: >100 bpm Resp Effort 1 min: Good Cry Reflex Irritability 1 min: Cough/Sneeze/Pulls Away Muscle Tone 1 min: Active Motion Color 1 min: Blue/Pale Resuscitation Effort 1 min: Tactile Stimulation; Oxygen SCORE 1 MIN: 8 Heart Rate 5 min: >100 bpm Resp Effort 5 min: Good Cry Reflex Irritability 5 min: Cough/Sneeze/Pulls Away Muscle Tone 5 min: Active Motion Color 5 min: Body [place], Extremit Blue SCORE 5 MIN: 9 INFORMATION BABY A Gestational Age at Delivery: 37.6 Gestational Status: Early Term- 37- 38.6 Weeks Outcome : Liveborn Infant Condition : Stable Sex: Male IDENTIFICATION/MEDS BABY A ID Band Number: [id number] ID Band Location: Right Leg; Left Arm Sensor Applied: Yes Sensor Number: [id number] Sensor Location : Cord Clamp WEIGHT/LENGTH BABY A Infant Birthweight (gm): 3630 Weight (lb): 8 Weight (oz): 0 Length (in): 20.00 Infant Length (cm): 50.80 CORD INFORMATION BABY A No. Cord Vessels: 3 Nuchal Cord : Around Neck x1, Loose Cord Blood Taken: Yes Infant Suction: Mouth; Nose ASSESSMENT BABY A Infant Complications: None Physical Findings at Delivery: Within Normal Limits Infant Respirations: Appears Normal Recruiting Manager/ALS Called : No Care By: /victor manuel lebron Transferred To: Remains with Mother
== END 2018-09-21 14:50 | disposition home or self-care (01) | DRG 785 ==
LOC: OBT 08:56 → L-D 08:58 → OBT 11:35 → L-D 13:54 → PP1 17:57
PROVIDERS: ADMIT Obstetrics & Gynecology; ATTEND Obstetrics & Gynecology
PROC: 0UB70ZZ Excision of Bilateral Fallopian Tubes, Open Approach (ICD-10-PCS; 2018-09-18)
PROC: 10D00Z1 Extraction of Products of Conception, Low, Open Approach (ICD-10-PCS; principal; 2018-09-18 14:15)
DX: O34.211 Maternal care for low transverse scar from previous cesarean delivery (principal); Z3A.37 37 weeks gestation of pregnancy; Z37.0 Single live birth; Z30.2 Encounter for sterilization
CPT/HCPCS: 81001; 85025; 85610; 85730; 86592; 86850; 86900; 86901; 87086; 87340; 88302; 99464; G0463; J0456; J0690; J0696; J1100; J1885; J2274; J2405; J2590; J2765; J7120